=== PATIENT | male | born 1990 | race American Indian/Alaskan Native ===

== ENCOUNTER → 2024-03-16 10:26 | Outpatient (REF) | payer OTHER, SELFPAY | LOC: HWRAD 10:26 | PROVIDERS: ATTENDING PHYSICIAN Orthopaedic Surgery; FAMILY PHYSICIAN Family Medicine | DX: S82.851A Displaced trimalleolar fracture of right lower leg, initial encounter for closed fracture (principal) | CPT/HCPCS: 73700 ==